=== PATIENT | female | born 1985 | race Caucasian/White ===

== ENCOUNTER 2019-09-12 18:06 | Inpatient (IN) | payer SELFPAY ==
[~2019-09-12 18:06] MED LIST: Iopamidol 370 76% 50 ML VIAL FS ONE; Iopamidol-370 76% 500 ML 1 ML ONE
[2019-09-12 18:35] LABS: #Eosinphils 0.1 thou/uL (0.0-0.7); #Monocytes 0.5 thou/uL (0.11-0.59); #Neutrophils 9.2 thou/uL (1.40-6.50); %Basophils 0.4 % (0.0-1.0); %Eosinophils 0.8 % (0.0-10.0); %Lymphocytes 23.3 % (21.0-51.0); %Monocytes 4.1 % (0.0-10.0); %Neutrophils 71.5 % (42.0-75.0); Hemoglobin 13.4 g/dL (12.0-16.0); Mean Corpuscular HGB CONC 33.1 g/dL (32.0-36.0); Mean Corpuscular Hemoglobin 28.4 pg (27.0-31.0); Mean Corpuscular Volume 85.8 fL (78.0-98.0); Mean Platelet Volume 7.6 fL (7.4-10.4); Platelet Count 325 thou/uL (130-400); RBC Distribution Width 11.1 % (11.5-14.5); Red Blood Cell (RBC) Count 4.71 mill/uL (4.20-5.40); White Blood Cell (WBC) Count 12.9 thou/uL (4.8-10.8)
--- NOTE | 2019-09-12 18:42 | RAD ---
Exam: One view pelvis HISTORY: Horse fell on patient FINDINGS: There appears to be a fracture involving the bilateral inferior pubic rami and superior pub ic rami. Diastases of the pubis. Possible fracture along the left aspect of the sacrum. Iliac wings appear to be intact. Limited evalu ation of both femoral necks. IMPRESSION: Fractures as above.
--- NOTE | 2019-09-12 18:42 | RAD ---
Exam:2 views right femur HISTORY: Horse fell on patient COMPARISON: None FINDINGS: With regard to the femur, no fracture, cortical irregularity or periosteal reaction. IMPRESSION: No fracture.
[2019-09-12 18:44] LABS: Prothrombin Time 13.7 SEC (12.0-14.7)
[2019-09-12 18:49] LABS: BHCG - Serum Negative (NEGATIVE); Pregs Control Background? CLEAR/WHITE (CLR/WHITE); Pregs Control Bar Appear? YES (CONTROL BAR)
[2019-09-12 18:53] LABS: ALT (SGPT) 26 U/L (8-55); AST (SGOT) 37 U/L (5-34); Albumin 4.3 g/dL (3.5-5.0); Alkaline Phosphatase 47 U/L (40-110); Anion Gap 13 mmol/L (10-20); BUN (Urea Nitrogen) 14 mg/dL (7.0-18.7); Bilirubin, Total 0.6 mg/dL (0.2-1.2); Calc. Creatinine Clearance 0 mL/min (70-130); Calcium 9.4 mg/dL (7.8-10.44); Carbon Dioxide 24 mmol/L (22-29); Chloride 104 mmol/L (98-107); Estimated GFR-MDRD 57; Globulin 2.9 g/dL (2.4-3.5); Glucose 129 mg/dL (70-105); Potassium 3.6 mmol/L (3.5-5.1); Protein, Total 7.2 g/dL (6.0-8.3); Sodium 137 mmol/L (136-145)
--- NOTE | 2019-09-12 18:54 | CT ---
Exam: Chest CT with contrast Abdomen CT with contrast Pelvic CT with contrast Limited CT of the thoracic and lumbar spine HISTORY: Horse fell on patient. Level 1 trauma. Correlation: None COMPARISON: None FINDINGS: Chest CT: Mediastinum: No mass, lymphadenopathy or hematoma. Residual thymic tissue in the anterior mediastinum . Aorta: Normal caliber. No aneurysm, dissection or periaortic fat stranding Heart: Normal heart size. No pericardial fluid. Trachea and central bronchi: Patent Pleural spaces: No pleural effusion Right lung: No mass or consolidation Left lung:No mass or consolidation Pneumothorax: None Abdomen CT: Gallbladder: Unremarkable Portal vein: Patent Liver: Appropriate enhancement. Spleen: Appropriate enhancement Pancreas: Appropriate enhancement Adrenal glands: Appropriate enhancement Lymphadenopathy: No gastrohepatic, retrocrural or periportal lymphadenopathy Kidneys: Symmetric enhancement. No obstructive uropathy Mesentery: No mass, lymphadenopathy, free air or free fluid Alimentary canal: Limited evaluation by the lack of oral contrast. No evidence of bowel obstruction. Normal caliber appendix. Pelvis CT: Uterus and right adnexa are unremarkable. Heterogeneous attenuation involving the left adnexa with a small amount of hyperdense fluid starting in the left adnexa and extending lateral to the left ovary. The possibility of injury to the left ovary cannot be excluded. There is a small amount of sli ghtly complex fluid in the pelvis. There is a left pelvic hematoma measuring 3.9 x 6.9 cm. Additionally, there is induration of the anterior pelvic fat at the level of the space of Retzius. Th ere is mild stranding of the left and right midline subcutaneous fat and soft tissues at the level of the perineum. Osseous structures:The visualized bony thorax is intact. There is a nondisplaced right S1 fracture. The left and right iliac wings and bilateral femoral head and femoral necks are intact. There are fractures involving both superior pubic rami and both inferior pubic rami. There is also fracture fragment inferior to the right obturator ring. There is d iastases of the symphysis pubis. There are fractures involving the anterior and mid aspect of the left acetabulum. Limited CT of the thoracic and lumbar spine: Thoracic and lumbar spine vertebral body heights are rayna ntained. No evidence of fracture. IMPRESSION: 1. Fractures involving both obturator rings with associated pelvic hematoma as described above. 2. Fracture involving the right aspect of the sacrum. Left acetabular fracture. 3. Questionable injury to the left ovary with complex fluid in the left hemipelvis. Results study discussed with Dr. Morley 09/12/2019 at 6:50 PM Code CR Transcribed Date/Time: 09/12/2019 7:25 PM
[2019-09-12] MEDS ORDERED: Fentanyl 100 MCG/2 ML VIAL ONE (18:58)
--- NOTE | 2019-09-12 19:01 | RAD ---
Exam: Chest one view HISTORY:Pain. Trauma. Comparison: None FINDINGS: Cardiac silhouette: Normal Aorta: Unremarkable Pulmonary vessels: Normal Costophrenic angles: Clear LUNGS: No masses or consolidation. Pneumothorax: None Osseous abnormalities: None IMPRESSION: No acute cardiopulmonary process.
[2019-09-12] MEDS ORDERED: hydrALAZINE 20 MG/ML VIAL SLOW IVP PRN (19:17)
[2019-09-12] MEDS ORDERED: Dextrose 5% in Water 1,000 ML IV PRN (19:17)
[2019-09-12] MEDS ORDERED: Dextrose 50% Abboject 50 ML SYRINGE SLOW IVP PRN (19:17)
[2019-09-12] MEDS ORDERED: traMADol HCl 50 MG TAB PO PRN (19:20)
--- NOTE | 2019-09-12 19:23 | HP ---
HISTORY OF PRESENT ILLNESS: A 33-year-old female, riding her horse when she fell off the horse and the horse fell on her. She is transferred by [facility], noted to be systolic 60 to 80 en route, and given fluids, although her heart rate remained normal at 80. She has been fasting for 3 days. On arrival, level 1 trauma was called. I was notified when the helicopter was landing. By the time I arrived, the patient's blood pressure was 105 to 110/80, heart rate 80. She is mentating, normal talking. Backboard had been removed. Thoracolumbar spine evaluated without tenderness. Cervical spine without tenderness. She denied loss consciousness. She is alert and oriented. GCS 15. Chest x-ray was normal. Pelvis x-ray suggested left sacral fracture and superior and inferior rami fracture bilaterally. Femur hip fracture appeared to be normal. PHYSICAL EXAMINATION: LUNGS: Clear to auscultation. CARDIAC: Regular rate and rhythm without murmur or gallop. ABDOMEN: Soft, nontender, nondistended. EXTREMITIES: Palpable pulses. No ankle edema. She had a good . Blood pressure was stable. The patient was taken to CT scan, where she underwent a CT scan of chest, abdomen, and pelvis. Results are pending, but initial review appears to be left sacral fracture and superior and inferior rami fracture bilaterally. There is diastasis of the pubis. Harrison catheter has not been in place re-evaluations, patient's lungs are clear. CARDIAC: Regular rate and rhythm. ABDOMEN: Soft, nontender. NEUROLOGIC: The patient is coherent and appropriate and states she only has pain when she moves. ALLERGIES: NONE. TOBACCO: None. ALCOHOL: None. MEDICATIONS: None. PAST SURGICAL/MEDICAL HISTORY: Noncontributory. PHYSICAL EXAMINATION: As noted above. LABORATORY DATA: Coagulation studies are normal. White count 12 and hemoglobin 13. The patient has not received blood. ASSESSMENT/PLAN: 1. Pelvic fracture. Consult Dr. Irizarry. 2. Bladder evaluation. CT cystogram once a Harrison catheter is inserted. Job ID: [id number]
[2019-09-12] MEDS ORDERED: Ibuprofen 800 MG TAB PO SCH (19:30)
[2019-09-12 19:36] LABS: Magnesium 1.8 mg/dL (1.6-2.6); Phosphorus 3.4 mg/dL (2.3-4.7)
[2019-09-12] MEDS ORDERED: Ondansetron PF 4 MG/2 ML Vial ONE (19:36)
[2019-09-12 19:50] LABS: Bacteria/HPF None Seen HPF (None Seen); Bilirubin Negative (Negative); Blood, Urine 2+ (Negative); Clarity Clear (Clear); Glucose, Urine (Dipstick) Normal (Negative); Leukocyte Negative Leu/uL (Negative); Nitrite Negative (Negative); Protein, Urine (Dipstick) 50 mg/dL (Neg-Trace); RBC/HPF Greater than 50 HPF (0-3); Squamous Epithelial 0-3 HPF (0-3); Urobilinogen Normal mg/dL (Less than 2)
[2019-09-12] MEDS ORDERED: Potassium Phosphate 15 MMOL in Sodium Chloride 0.9% 250 ML 250 ML IVPB SCH (20:00)
[2019-09-12] MEDS ORDERED: Magnesium 2 GM/50 ML 2 GM in Premix Bag 1 BAG IVPB SCH (20:00)
--- NOTE | 2019-09-12 20:11 | CT ---
Exam: Noncontrast pelvic CT. HISTORY: Pelvic fracture. Evaluate for bladder leak. Comparison: Pelvic CT performed earlier today TECHNIQUE: Imaging of the pelvis is performed after the bladder was distended with contrast. Second s et of images was performed after the contrast was removed from the urinary bladder. FINDINGS: Redemonstration of posttraumatic changes involving the pelvis which have reportedly been described on the earlier CT. Pelvic fractures and hematomas are noted. Contrast opacifies and adequately distends the urinary bladder. There is air in the nondependent portion of the urinary bladder. Post void images demonstrate a small amount of residual contrast in the urinary bladder, along with t he balloon of the Harrison catheter. There does not appear to be any leak or extravasation. There is evidence of contrast in the left and right ureter due to remote/recent IV contrast administration. IMPRESSION: No evidence of bladder injury/leak or extravasation.. Transcribed Date/Time: 09/12/2019 8:23 PM
[2019-09-12 21:31] LABS: Lactic Acid 1.5 mmol/L (0.5-2.2)
--- NOTE | 2019-09-12 21:55 | CON ---
DATE OF CONSULTATION: 09/12/2019 CHIEF COMPLAINT: Pelvic pain. HISTORY OF PRESENT ILLNESS: Ms. Trevino is a 33-year-old female, who was riding a horse. She was thrown from the horse and the horse fell. The horse landed on her pelvis. She had immediate pain. She was unable to ambulate. She was taken to the emergency department by EMS. She has been hemodynamically stable since receiving fluids. She did have borderline hypotension when she arrived. She has not been tachycardic. She has received pain medications and is currently comfortable. She had a pelvic binder placed initially, but it is now loose. She is lying supine in the [facility] [place]. Remainder of her workup has been negative so far. PAST MEDICAL HISTORY: She denies active medical problems. PAST SURGICAL HISTORY: No recent surgeries. SOCIAL HISTORY: The patient denies tobacco, alcohol, or drug use. FAMILY MEDICAL HISTORY: Noncontributory. REVIEW OF SYSTEMS: Positive for pelvic pain. Otherwise, negative 10-point review of systems. IMAGING: X-rays of the pelvis are reviewed, as well as the right femur. These demonstrates inferior and superior pubic ramus fractures on the left side. There is also a superior pubic ramus fracture on the right side. She has a sacral fracture lateral to the sacral foramen, which is most evident on the CT scan. Sacroiliac joints appear to be intact. PHYSICAL EXAMINATION: VITAL SIGNS: Stable. The patient is normotensive. She is currently afebrile and has 98% oxygen saturation on room air. GENERAL: She is lying supine and she is alert. She answers questions appropriately. No apparent distress. HEENT: Normocephalic and atraumatic. RESPIRATORY: Breathing comfortably. Equal chest rise. ABDOMEN: Soft, nontender, and nondistended. MUSCULOSKELETAL: The patient is able to flex and extend her toes. She reports normal sensation in the feet and ankles. She has palpable dorsalis pedis pulses bilaterally. Her right leg is sitting up on pillows in a flexed position. Her skin is intact. There is a pelvic binder loosely around her pelvis. She does have pain with pelvic motion and any movement of her right leg. IMPRESSION: Pelvic fracture likely stable in a 33-year-old female. PLAN: At this point, I am planning on nonoperative treatment for the patient. I think her pelvic ring injury will be stable. I would however like to keep a close eye on this. I would like to take repeat pelvic AP x-ray and inlet and outlet radiographs in 2 days after she is able to mobilize to check the alignment and position of the pelvis. If she has any significant shift, we may need to convert to operative treatment. For now, her sacral ala fracture and pubic ramus fractures likely will heal without surgical intervention. She will need to be nonweightbearing on the right leg and can weightbear as tolerated on the left leg. She will need DVT prophylaxis, as well as appropriate pain control. We will continue to follow her closely. Job ID: [id number] MTDD
[2019-09-12] MEDS: Famotidine/PF 20 mg/2ml Vial SLOW IVP SCH (22:44)
[2019-09-12] MEDS: Morphine 4 MG/ML VIAL SLOW IVP PRN (22:45)
[2019-09-12] MEDS: Sodium Chloride 0.9% 1,000 ML IV SCH (22:47)
[2019-09-12] MEDS: Senokot S 8.6-50 MG TAB PO SCH (22:49)
[2019-09-12] MEDS: Acetaminophen 1,000 MG in Premix Bag 1 BAG IVPB SCH (23:07)
[2019-09-13 00:47] VITALS: BMI 32.0
--- NOTE | 2019-09-13 03:10 | PRG ---
DATE OF SERVICE: 09/13/2019 SUBJECTIVE: The patient was seen this evening in the [facility]. She was resting comfortably in bed and reported her pain control has much improved since she has left the emergency department. She has not been up out of bed and she is currently n.p.o. at this time. She does generally report feeling better. OBJECTIVE: VITAL SIGNS: Temperature 98.0, pulse 67, respirations 14, oxygen saturation 96% on room air, blood pressure 100/50. GENERAL: Well-appearing young female, lying in bed with no signs of acute distress. PULMONARY: Equal chest rise and fall. Clear breath sounds bilaterally. No signs of acute respiratory distress. CARDIAC: Regular rate and rhythm. ABDOMEN: Soft, nontender, nondistended. EXTREMITIES: 2+ pulses in all extremities. Gross motor and sensation are intact. NEUROLOGIC: GCS is 15. ASSESSMENT: 1. Status post crushed by horse. 2. Bilateral obturator ring fractures. 3. Pelvic hematoma. 4. Sacral fracture. 5. Left acetabular fracture. 6. Possible left ovarian injury. 7. Acute traumatic pain, improving. PLAN: Continue current n.p.o. status as well as IV pain medications. The patient also has oral pain medications. We will add gabapentin to this regimen as well. We will repeat blood work in the morning and she can start working with Physical and Occupational Therapy tomorrow. Electrolytes were replaced via IV in the emergency department. Orthopedic Surgery reports no surgical indication at this time. However, we will complete inlet and outlet pelvic x-rays in 2 days for further evaluation of the pelvic injuries. Job ID: [id number]
[2019-09-13] MEDS: Cyclobenzaprine 10 MG TAB PO PRN ×2 (04:10→23:16)
[2019-09-13] MEDS: traMADol HCl 50 MG TAB PO PRN (04:10)
[2019-09-13 04:20] LABS: #Lymphocytes 1.5 thou/uL (1.20-3.40); #Monocytes 0.7 thou/uL (0.11-0.59); #Neutrophils 5.9 thou/uL (1.40-6.50); %Basophils 0.1 % (0.0-1.0); %Eosinophils 0.4 % (0.0-10.0); %Lymphocytes 18.1 % (21.0-51.0); %Monocytes 8.7 % (0.0-10.0); %Neutrophils 72.7 % (42.0-75.0); Mean Corpuscular HGB CONC 33.3 g/dL (32.0-36.0); Mean Corpuscular Hemoglobin 28.8 pg (27.0-31.0); Mean Corpuscular Volume 86.5 fL (78.0-98.0); Mean Platelet Volume 7.5 fL (7.4-10.4); Platelet Count 192 thou/uL (130-400); RBC Distribution Width 11.2 % (11.5-14.5); Red Blood Cell (RBC) Count 3.81 mill/uL (4.20-5.40); White Blood Cell (WBC) Count 8.1 thou/uL (4.8-10.8)
[2019-09-13 04:42] LABS: Anion Gap 11 mmol/L (10-20); BUN (Urea Nitrogen) 13 mg/dL (7.0-18.7); Calc. Creatinine Clearance 142 mL/min (70-130); Calcium 7.8 mg/dL (7.8-10.44); Carbon Dioxide 19 mmol/L (22-29); Chloride 111 mmol/L (98-107); Estimated GFR-MDRD Greater than 90; Glucose 102 mg/dL (70-105); Magnesium 1.7 mg/dL (1.6-2.6); Phosphorus 4.5 mg/dL (2.3-4.7); Potassium 4.1 mmol/L (3.5-5.1); Sodium 137 mmol/L (136-145)
[2019-09-13] MEDS: Acetaminophen 1,000 MG in Premix Bag 1 BAG IVPB SCH (05:55)
[2019-09-13] MEDS: Sodium Chloride 0.9% 1,000 ML IV SCH ×2 (05:56→14:47)
[2019-09-13] MEDS: Ondansetron PF 4 MG/2 ML Vial IVP PRN ×2 (06:08→17:31)
[2019-09-13] MEDS: Gabapentin 100 MG CAP PO SCH ×3 (09:46→20:44)
[2019-09-13] MEDS: Senokot S 8.6-50 MG TAB PO SCH ×3 (09:46→20:44)
[2019-09-13] MEDS: Famotidine/PF 20 mg/2ml Vial SLOW IVP SCH ×2 (09:46→20:41)
[2019-09-13] MEDS: Polyethylene Glycol 3350 17 GM Packet PO SCH (09:47)
[2019-09-13] MEDS ORDERED: FLU VACC QS2019-20(6MOS UP)/PF 60 MCG/0.5 ML SYRINGE IM ONE (11:00)
[2019-09-13] MEDS: Acetaminophen 500 MG TAB PO SCH ×3 (12:08→23:16)
[2019-09-13] MEDS: Morphine 4 MG/ML VIAL SLOW IVP PRN ×3 (12:09→20:41)
--- NOTE | 2019-09-13 14:06 | PRG ---
DATE OF SERVICE: 09/13/2019 SUBJECTIVE: The patient was seen this morning in the intermediate care unit. The patient is awake, alert, in no distress and reports that her pain was well controlled. The patient voices no complaints or concerns at this time. The patient has been n.p.o. since midnight. OBJECTIVE: VITAL SIGNS: Blood pressure 103/60, pulse 77, respirations 18, SpO2 of 97% on room air, temperature 97.6. GENERAL: Well-appearing young female, lying in hospital bed, in no acute distress. PULMONARY: Equal chest rise and fall, bilateral breath sounds clear, no acute respiratory distress. CARDIAC: Regular rate regular rhythm, no murmurs. ABDOMEN: Soft, nontender, nondistended. EXTREMITIES: 2+ pulses in all extremities. Gross motor and sensation are intact in all extremities. NEUROLOGIC: GCS 15. ASSESSMENT: 1. Status post crushed by horse. 2. Bilateral obturator ring fractures. 3. Pelvic hematoma. 4. Sacral fracture. 5. Left acetabular fracture. 6. Possible left ovary injury. 7. Acute traumatic pain improving. PLAN: Continue supportive care. We will increase the patient's diet as tolerated. Once the patient is tolerating fluids and a diet, we will stop maintenance fluids. We will switch the patient over to oral pain medications. We will move the patient to the surgical floor and have Physical and Occupational therapy start working with the patient. Orthopedic Surgery plans to get a repeat pelvis x-ray tomorrow after the patient has ambulated to make final decision on conservative versus operative management. The patient was seen by Dr. Scruggs during morning rounds. The plan was discussed with the patient, who agrees. Job ID: [id number]
--- NOTE | 2019-09-14 00:08 | PRG ---
DATE OF SERVICE: 09/13/2019 SUBJECTIVE: The patient was seen this evening, lying in bed with no signs of acute distress. She reported she was beginning to be able to move more in the bed and pain management has improved. She has not been out of bed yet. She states that Orthopedic Surgery plans to perform imaging tomorrow to re-evaluate pelvis. They have also made her n.p.o. and started on IV fluid. I suppose they are planning possible surgical management tomorrow. OBJECTIVE: VITAL SIGNS: Temperature 98.4, pulse 100, respirations 16, oxygen saturation 97% on room air, blood pressure 111/69. GENERAL: Well-appearing young female, lying in bed with no signs of acute distress. PULMONARY: Equal chest rise and fall. No signs of acute respiratory distress. CARDIAC: Regular rate and rhythm. ABDOMEN: Soft, nontender, nondistended. EXTREMITIES: 2+ pulses in all extremities. Gross motor and sensation intact. NEUROLOGICAL: GCS is 15. ASSESSMENT: 1. Status post crush by horse. 2. Bilateral obturator ring fractures. 3. Pelvic hematoma, stable. 4. Sacral fracture. 5. Left acetabular fracture. 6. Possible left ovarian injury. PLAN: The patient will be n.p.o. with normal saline at 75 an hour at midnight per Orthopedic Surgery. We will continue to monitor her hemodynamics. She has not required any additional blood transfusions since she has arrived. We will follow up with imaging results tomorrow and Orthopedic Surgery's plan for possible fixation. The patient will likely need placement at a rehab facility regardless if she has surgery or not. Job ID: [id number]
[2019-09-14] MEDS: Morphine 4 MG/ML VIAL SLOW IVP PRN ×2 (03:30→08:26)
[2019-09-14] MEDS: Sodium Chloride 0.45% 1,000 ML IV SCH ×2 (03:36→14:16)
[2019-09-14] MEDS: Acetaminophen 500 MG TAB PO SCH ×3 (05:11→18:38)
[2019-09-14 05:39] LABS: #Eosinphils 0.1 thou/uL (0.0-0.7); #Lymphocytes 1.7 thou/uL (1.20-3.40); #Monocytes 0.6 thou/uL (0.11-0.59); #Neutrophils 5.1 thou/uL (1.40-6.50); %Basophils 0.3 % (0.0-1.0); %Eosinophils 1.7 % (0.0-10.0); %Lymphocytes 22.7 % (21.0-51.0); %Monocytes 7.9 % (0.0-10.0); %Neutrophils 67.4 % (42.0-75.0); Hemoglobin 10.6 g/dL (12.0-16.0); Mean Corpuscular Hemoglobin 28.6 pg (27.0-31.0); Mean Corpuscular Volume 86.6 fL (78.0-98.0); Mean Platelet Volume 7.6 fL (7.4-10.4); Platelet Count 174 thou/uL (130-400); RBC Distribution Width 11.4 % (11.5-14.5); Red Blood Cell (RBC) Count 3.71 mill/uL (4.20-5.40); White Blood Cell (WBC) Count 7.6 thou/uL (4.8-10.8)
[2019-09-14 06:03] LABS: Anion Gap 6 mmol/L (10-20); BUN (Urea Nitrogen) 7 mg/dL (7.0-18.7); Calc. Creatinine Clearance 140 mL/min (70-130); Calcium 7.8 mg/dL (7.8-10.44); Carbon Dioxide 24 mmol/L (22-29); Chloride 108 mmol/L (98-107); Estimated GFR-MDRD Greater than 90; Glucose 100 mg/dL (70-105); Magnesium 1.8 mg/dL (1.6-2.6); Phosphorus 2.4 mg/dL (2.3-4.7); Potassium 3.7 mmol/L (3.5-5.1); Sodium 134 mmol/L (136-145)
--- NOTE | 2019-09-14 08:33 | RAD ---
PELVIS 3 VIEWS: COMPARISON: Pelvic CT 09/13/2019. FINDINGS: Abnormal widening of the symphysis pubis with essentially nondisplaced fractures of the right sacral ala and right superior and inferior ischiopubic rami with displaced fractures of the left superior an d inferior pubic rami. IMPRESSION: Bilateral ischiopubic rami fractures, right sacral ala fracture, and separation of the symphysis pubi s up to 1.2 cm. POS: TPC
[2019-09-14] MEDS: Polyethylene Glycol 3350 17 GM Packet PO SCH (08:35)
[2019-09-14] MEDS: Cyclobenzaprine 10 MG TAB PO PRN (08:35)
[2019-09-14] MEDS: traMADol HCl 50 MG TAB PO PRN (08:35)
[2019-09-14] MEDS: Gabapentin 100 MG CAP PO SCH (08:35)
[2019-09-14] MEDS: Senokot S 8.6-50 MG TAB PO SCH ×2 (08:35→21:45)
[2019-09-14] MEDS: Famotidine 20 MG TAB PO SCH ×2 (08:39→21:45)
[2019-09-14] MEDS ORDERED: Morphine 2 MG/ML SYRINGE SLOW IVP PRN (10:03)
[2019-09-14] MEDS: Scopolamine 1.5 mg/72 hour Patch TD SCH (10:38)
[2019-09-14] MEDS: traMADol HCl 50 MG TAB PO SCH ×2 (14:21→18:38)
[2019-09-14] MEDS: Gabapentin 300 MG CAP PO SCH ×2 (14:21→21:45)
--- NOTE | 2019-09-14 18:26 | PRG ---
DATE OF SERVICE: 09/14/2019 SUBJECTIVE: The patient was seen on the surgical floor this morning attempting to work with Physical Therapy. The patient reports increased pain and severe nausea. The patient is unable to stand and participate with Physical Therapy due to severe nausea and pain. The patient reports before attempting to get up, her pain was well controlled and denied any nausea. This was the first time the patient had sat up since admission. The patient has been using her incentive spirometer. OBJECTIVE: VITAL SIGNS: Blood pressure 99/64, pulse 80, respirations 16, SpO2 of 96% on room air, temperature 98.0. GENERAL: Well-appearing female, in moderate distress due to pain. PULMONARY: Equal chest rise and fall. No respiratory distress. CARDIAC: Regular rate and regular rhythm. EXTREMITIES: 2+ pulses in all extremities, sensation intact. NEUROLOGIC: GCS 15. LABORATORY DATA: WBC 7.6, RBC 3.71, hemoglobin 10.6, hematocrit 32.2, platelets 174. Sodium 134, potassium 3.7, BUN 7, creatinine 0.71, estimated GFR greater than 90, glucose 100. DIAGNOSTIC STUDIES: Repeat pelvis x-ray, impression; bilateral rami fractures, right sacral ala fracture, and separation of the symphysis pubis up to 1.2 cm. ASSESSMENT: 1. Status post crush by horse. 2. Bilateral obturator ring fracture. 3. Pelvic hematoma. 4. Sacral fracture. 5. Left acetabular fracture. 6. Possible left ovary injury. 7. Acute traumatic pain and nausea. PLAN: Continue supportive care. Continue regular diet as tolerated. We will place a scopolamine patch as the patient is feeling nauseous and dizzy. We will have Physical Therapy work with the patient again later today. The patient is pending a lumbar corset per Orthopedic Surgery. The patient was approved for 2 [facility] home health visits for physical therapy once she is ready for discharge. Attempted to get the patient placed in inpatient rehab, but the patient does not have funding. Job ID: [id number]
[2019-09-14] MEDS ORDERED: Enoxaparin Sodium 40 MG/0.4 ML SYRINGE SC SCH (21:00)
--- NOTE | 2019-09-15 00:23 | PRG ---
DATE OF SERVICE: 09/14/2019 SUBJECTIVE: The patient was seen this evening, sitting up in bed with no signs of acute distress. She reported she was able to sit up at the edge of the bed, but not stand up today with physical therapy. She is tolerating a regular diet. She has pelvic brace in place. OBJECTIVE: VITAL SIGNS: Temperature 98.3, pulse 75, respirations 16, oxygen saturation 98% on room air, blood pressure 97/76. GENERAL: Well-appearing young female, lying in bed with no signs of acute distress. PULMONARY: Equal chest rise and fall. Clear breath sounds bilaterally. No signs of acute respiratory distress. CARDIAC: Regular rate and rhythm. GI: Abdomen is soft, nontender, nondistended. EXTREMITIES: 2+ pulses in all extremities. Gross motor and sensation intact. NEUROLOGIC: GCS is 15. ASSESSMENT: 1. Status post crush by horse. 2. Bilateral obturator ring fracture. 3. Pelvic hematoma, stable. 4. Sacral fracture. 5. Left acetabular fracture. 6. Possible left ovary injury. PLAN: Continue current diet and pain medicine. The patient was started on Lovenox today. We will repeat blood work tomorrow. The patient is uninsured, but we will get 2 aishwarya visits with home health for home PT. She is not ready for discharge at this time as she is still not able to get up out of the bed and ambulate. She will continue to work with Physical and Occupational Therapy tomorrow. Pain is well controlled. Job ID: [id number]
[2019-09-15] MEDS: Acetaminophen 500 MG TAB PO SCH ×4 (00:29→18:22)
[2019-09-15] MEDS: traMADol HCl 50 MG TAB PO SCH ×4 (00:30→18:22)
[2019-09-15 06:19] LABS: #Eosinphils 0.3 thou/uL (0.0-0.7); #Lymphocytes 2.1 thou/uL (1.20-3.40); #Monocytes 0.6 thou/uL (0.11-0.59); %Basophils 0.3 % (0.0-1.0); %Eosinophils 3.7 % (0.0-10.0); %Lymphocytes 25.7 % (21.0-51.0); %Monocytes 7.8 % (0.0-10.0); %Neutrophils 62.4 % (42.0-75.0); Hemoglobin 11.1 g/dL (12.0-16.0); Mean Corpuscular HGB CONC 32.7 g/dL (32.0-36.0); Mean Corpuscular Hemoglobin 28.6 pg (27.0-31.0); Mean Corpuscular Volume 87.5 fL (78.0-98.0); Mean Platelet Volume 7.9 fL (7.4-10.4); Platelet Count 188 thou/uL (130-400); RBC Distribution Width 11.6 % (11.5-14.5); Red Blood Cell (RBC) Count 3.88 mill/uL (4.20-5.40)
[2019-09-15 06:35] LABS: Anion Gap 10 mmol/L (10-20); BUN (Urea Nitrogen) 8 mg/dL (7.0-18.7); Calc. Creatinine Clearance 144 mL/min (70-130); Calcium 8.3 mg/dL (7.8-10.44); Carbon Dioxide 25 mmol/L (22-29); Chloride 108 mmol/L (98-107); Estimated GFR-MDRD Greater than 90; Glucose 99 mg/dL (70-105); Magnesium 1.8 mg/dL (1.6-2.6); Phosphorus 2.7 mg/dL (2.3-4.7); Potassium 3.8 mmol/L (3.5-5.1); Sodium 139 mmol/L (136-145)
[2019-09-15] MEDS: Polyethylene Glycol 3350 17 GM Packet PO SCH (08:33)
[2019-09-15] MEDS: Senokot S 8.6-50 MG TAB PO SCH ×2 (08:33→20:40)
[2019-09-15] MEDS: Gabapentin 300 MG CAP PO SCH ×3 (08:33→20:40)
[2019-09-15] MEDS: Famotidine 20 MG TAB PO SCH ×2 (08:33→20:40)
--- NOTE | 2019-09-15 11:53 | PRG ---
DATE OF SERVICE: 09/15/2019 SUBJECTIVE: The patient was seen on the surgical floor this morning lying in hospital bed. The patient reports her pain is well controlled at this time. The patient voices no complaints or concerns at this time. The patient is tolerating a regular diet. The patient did get up and ambulate with Physical Therapy to the restroom earlier today with moderate amount of pain which made her nauseated as well. OBJECTIVE: VITAL SIGNS: Blood pressure 100/63, pulse 79, temperature 98.2, respirations 16, SpO2 of 95% on room air. GENERAL: Well-appearing female, in no acute distress. PULMONARY: Equal chest rise and fall. Bilateral breath sounds, clear. CARDIAC: Regular rate. Regular rhythm. EXTREMITIES: 2+ pulses in all extremities. Gross motor and sensation, intact. NEUROLOGIC: GCS 15. LABORATORY DATA: WBC 8.0, RBC 3.88, hemoglobin 11.1, hematocrit 34.0, platelets 188. Sodium 139, potassium 3.8, chloride 108, creatinine 0.69, estimated GFR greater than 90, glucose 99, calcium 8.3, phosphorus 2.7, magnesium 1.8. DIAGNOSTICS: There are no new diagnostics to review today. ASSESSMENT: 1. Status post crush injury by horse. 2. Bilateral obturator ring fracture. 3. Pelvic hematoma. 4. Sacral fracture. 5. Left acetabular fracture, nonoperative. 6. Possible left ovary injury. 7. Acute traumatic pain and nausea. PLAN: Continue supportive care and pain regimen. We will continue regular diet as tolerated. We will continue physical and occupational therapy. The patient uses her incentive spirometer every hour while awake. We will have the patient up in the chair for most of the day if possible. Orthopedic Surgery plans to get a repeat x-ray on Tuesday. We will have Physical Therapy work with her over the weekend. The plan was discussed with the patient, who agrees. The plan was discussed with Dr. Mancilla, who agrees. Job ID: [id number]
[2019-09-15] MEDS: Enoxaparin Sodium 30 MG/0.3 ML SYRINGE SC SCH (20:43)
[2019-09-16] MEDS: traMADol HCl 50 MG TAB PO SCH ×5 (00:51→22:16)
[2019-09-16] MEDS: Acetaminophen 500 MG TAB PO SCH ×4 (00:51→17:16)
--- NOTE | 2019-09-16 01:50 | PRG ---
DATE OF SERVICE: 09/15/2019 SUBJECTIVE: The patient was seen this evening, sitting up in bed with no signs of acute distress. She did report that she was able to ambulate with physical therapy to the bedside commode, but had significant pain, when she sat down. Did cause her to become nauseous and vomit. She has since been doing well in bed. She states that her pain is well controlled otherwise. OBJECTIVE: VITAL SIGNS: Temperature 98.4, pulse 78, respirations 16, oxygen saturation 99% on room air, and blood pressure 104/66. GENERAL: Well-appearing young female, sitting up in bed with no signs of acute distress. PULMONARY: Equal chest rise and fall. No signs of acute respiratory distress. ASSESSMENT: 1. Status post crush by horse. 2. Bilateral obturator ring fractures. 3. Pelvic hematoma, stable. 4. Sacrum fracture, stable. 5. Left acetabular fracture. 6. Possible left ovarian injury. 7. Acute traumatic pain, improving. PLAN: Continue current diet and pain regimen. Continue physical and occupational therapy. Ortho to complete repeat x-rays of the pelvis on Tuesday to reassess for stabilization. The patient is not ready for discharge home at this time due to limited mobility. She is uninsured and not a candidate for inpatient rehab. Job ID: [id number]
[2019-09-16] MEDS: Famotidine 20 MG TAB PO SCH ×2 (09:05→21:08)
[2019-09-16] MEDS: Gabapentin 300 MG CAP PO SCH ×3 (09:05→21:08)
[2019-09-16] MEDS: Senokot S 8.6-50 MG TAB PO SCH ×2 (09:05→21:08)
[2019-09-16] MEDS: Enoxaparin Sodium 30 MG/0.3 ML SYRINGE SC SCH ×2 (09:06→21:07)
[2019-09-16] MEDS: Polyethylene Glycol 3350 17 GM Packet PO SCH (09:06)
[2019-09-16] MEDS: Cyclobenzaprine 10 MG TAB PO PRN (09:10)
[2019-09-16] MEDS ORDERED: Ibuprofen 600 MG TAB PO PRN (09:19)
[2019-09-16] MEDS ORDERED: traMADol HCl 50 MG TAB PO PRN (09:19)
--- NOTE | 2019-09-16 12:00 | PRG ---
DATE OF SERVICE: 09/16/2019 SUBJECTIVE: This is a 33-year-old woman, who was crushed by a horse with pelvic and sacrum fractures. The patient remains on the surgical floor, lying in hospital bed. The patient just walked from the restroom and reports some increased pain after going to the restroom and sitting on the toilet. Otherwise, the patient's pain is well controlled without movement. The patient continues to tolerate a regular diet. OBJECTIVE: VITAL SIGNS: Pulse 75, temperature 98.4, respirations 18, SpO2 of 94% on room air, and blood pressure 99/67. GENERAL: Well-appearing female, lying in hospital bed, in no acute distress. PULMONARY: Equal chest rise and fall. Breath sounds clear. CARDIAC: Regular rate. Regular rhythm. EXTREMITIES: 2+ pulses in all extremities. Gross motor and sensation intact. NEUROLOGIC: GCS 15. LABORATORY DATA: There is no labs to evaluate today. DIAGNOSTICS: There is no new diagnostics to review today. ASSESSMENT: 1. Status post crush injury by horse. 2. Bilateral obturator ring fracture. 3. Pelvic hematoma. 4. Sacral fracture. 5. Left acetabular fracture, nonoperative. 6. Possible left ovary injury. 7. Acute traumatic pain. PLAN: Continue supportive care. We will adjust patient's pain medication, where she has scheduled and p.r.n., so she can use the p.r.n. before physical therapy. Continue regular diet as tolerated. Continue to encourage increased ambulation and work with physical and occupational therapy. Continue aggressive pulmonary toilet and using her incentive spirometer every hour while awake. The patient has been encouraged to sit up in the chair for most of the day. Orthopedic Surgery plans to repeat the patient's x-rays tomorrow. The plan was discussed with the patient, who agrees. The plan was also discussed with Dr. Mancilla, who agrees. Job ID: [id number]
[2019-09-16] MEDS: Ibuprofen 600 MG TAB PO SCH (22:15)
[2019-09-17] MEDS: Acetaminophen 500 MG TAB PO SCH ×5 (00:18→23:49)
[2019-09-17] MEDS: Cyclobenzaprine 10 MG TAB PO PRN ×2 (00:19→11:43)
--- NOTE | 2019-09-17 01:22 | PRG ---
DATE OF SERVICE: 09/16/2019 SUBJECTIVE: The patient was seen this evening during rounds. She was resting comfortably and asleep during my evaluation. Nursing reported no acute events. OBJECTIVE: VITAL SIGNS: Temperature 98.8, pulse 75, respirations 16, oxygen saturation 100% on room air, blood pressure 106/69. GENERAL: Well-appearing, middle-aged female, lying in bed with no signs of acute distress. PULMONARY: Equal chest rise and fall. No signs of acute respiratory distress. ASSESSMENT: 1. Status post crush by horse. 2. Bilateral obturator ring fracture. 3. Pelvic hematoma, stable. 4. Sacral fracture. 5. Left acetabular fracture. 6. Possible left ovarian injury. PLAN: Continue current diet and pain regimen. Continue physical and occupational therapy. The patient is pending discharge home with home health. Ortho to repeat x-rays of her pelvis on Tuesday. Job ID: [id number]
[2019-09-17] MEDS: traMADol HCl 50 MG TAB PO SCH ×5 (03:23→23:50)
[2019-09-17] MEDS: Ibuprofen 600 MG TAB PO SCH ×4 (05:52→21:43)
[2019-09-17] MEDS: Famotidine 20 MG TAB PO SCH ×2 (09:15→21:43)
[2019-09-17] MEDS: Senokot S 8.6-50 MG TAB PO SCH ×2 (09:15→21:43)
[2019-09-17] MEDS: Scopolamine 1.5 mg/72 hour Patch TD SCH (09:16)
[2019-09-17] MEDS: Enoxaparin Sodium 30 MG/0.3 ML SYRINGE SC SCH ×2 (09:16→21:43)
[2019-09-17] MEDS: Gabapentin 300 MG CAP PO SCH ×3 (09:16→21:43)
[2019-09-17] MEDS: Polyethylene Glycol 3350 17 GM Packet PO SCH (09:16)
--- NOTE | 2019-09-17 14:23 | PRG ---
DATE OF SERVICE: 09/17/2019 SUBJECTIVE: This is a 33-year-old woman who was crushed by a horse with pelvic and sacral fractures. The patient remains on the surgical floor. The patient is currently up, ambulating with a walker after going to the restroom. The patient reports severe pain with ambulation in her pelvis area. The patient does report some nausea whenever she does have severe pain. The patient states she had a good night and the pain is well controlled, if she is not ambulating. The patient continues to tolerate a regular diet. The patient states this is the farther she has walked since admission. OBJECTIVE: VITAL SIGNS: Temperature 98.4, pulse 74, respirations 20, SpO2 of 96% on room air, blood pressure 97/61. GENERAL: A middle-age female, moderate distress due to pain, ambulating back to bed from the restroom. PULMONARY: Equal chest rise and fall, bilateral breath sounds clear. CARDIAC: Regular rate, regular rhythm. EXTREMITIES: 2+ pulses in all extremities. Gross motor and sensation intact. NEUROLOGIC: GCS 15. LABORATORY DATA: No new labs diagnostics to review today. ASSESSMENT: 1. Status post crush injury by a horse. 2. Bilateral obturator ring fracture. 3. Pelvic hematoma. 4. Sacral fracture. 5. Left acetabular fracture, nonoperative. 6. Possible left ovary injury. 7. Acute traumatic pain. PLAN: Continue supportive care. We will increase the patient's pain regimen and add [place] p.r.n. Continue to have Physical Therapy work with the patient. We will continue regular diet as tolerated. Orthopedic Surgery plans to repeat pelvic x-rays tomorrow. The patient was examined by Dr. Scruggs, during morning rounds. The plan was discussed with the patient, who agrees. Job ID: [id number]
--- NOTE | 2019-09-18 01:58 | PRG ---
DATE OF SERVICE: 09/17/2019 SUBJECTIVE: The patient was seen this evening, lying in bed comfortably and asleep, with no signs of acute distress. Nursing reported no acute events. OBJECTIVE: VITAL SIGNS: Temperature 98, pulse 88, respirations 16, oxygen saturation 98% on room air, and blood pressure 97/63. GENERAL: Well-appearing middle-aged female, lying in bed with no signs of acute distress. PULMONARY: Equal chest rise and fall. No signs of acute respiratory distress. ASSESSMENT: 1. Status post crush by horse. 2. Bilateral obturator ring fractures. 3. Pelvic hematoma, stable. 4. Sacral fracture. 5. Left acetabular fracture. 6. Possible left ovarian injury. PLAN: Continue current diet and pain regimen. The patient was given p.r.n. [place] today to assist with further pain control. She will continue to work with Physical and Occupational Therapy. Orthopedic Surgery to complete x-rays of her pelvis tomorrow and reconsider possible surgical intervention as she has such significant pain. Job ID: [id number]
[2019-09-18] MEDS: Ibuprofen 600 MG TAB PO SCH ×3 (05:33→23:02)
[2019-09-18] MEDS: Acetaminophen 500 MG TAB PO SCH (05:33)
[2019-09-18] MEDS: traMADol HCl 50 MG TAB PO SCH ×4 (05:33→23:01)
[2019-09-18] MEDS: Gabapentin 300 MG CAP PO SCH ×3 (08:22→20:03)
[2019-09-18] MEDS: Senokot S 8.6-50 MG TAB PO SCH ×2 (08:22→20:03)
[2019-09-18] MEDS: Famotidine 20 MG TAB PO SCH ×2 (08:23→20:03)
[2019-09-18] MEDS: Polyethylene Glycol 3350 17 GM Packet PO SCH (08:23)
[2019-09-18] MEDS: Enoxaparin Sodium 30 MG/0.3 ML SYRINGE SC SCH ×2 (08:23→20:02)
--- NOTE | 2019-09-18 09:06 | RAD ---
AP VIEW PELVIS: INDICATIONS: Prior exam dated 09/14/2019. FINDINGS: The patient's known left pubic root and left inferior pubic ramus fractures, in addition to the left pubic body fracture are unchanged. The fracture involving the superior ramus on the right is stable a ppearing. The patient's known zone II right sacral injury is stable. Diastasis of the symphysis pubis is similar appearing. Both hip joints are normal appearing. Bowel gas pattern is unobstructed. Umbil ical ornamentation overlies the lower abdomen. IMPRESSION: Stable pubic bone and right sacral fractures. POS: CET
--- NOTE | 2019-09-18 10:42 | PRG ---
DATE OF SERVICE: 09/18/2019 SUBJECTIVE: The patient is a 33-year-old woman, who was crushed by a horse with pelvic and sacral fractures. The patient remains on the surgical floor. The patient was seen this morning during rounds, she was lying in bed comfortably with no signs of acute distress. Nursing reported no acute events. The patient reports that she was able to ambulate earlier this morning using a walker to go to the restroom. The patient says that her pain was better controlled last night and this morning. She says her pain while ambulating yesterday was 8/10. This morning, when ambulating, she says her pain was a 5/10. The patient had pelvic x-ray repeated earlier this morning. Ortho is pending decision for operative versus nonoperative treatment. The patient also reports that she has not yet had a bowel movement. OBJECTIVE: VITAL SIGNS: Temperature 98.2 Fahrenheit, blood pressure 116/75, pulse 72, respirations 16, and O2 saturation 97% on room air. GENERAL: Well-appearing middle-aged female, lying in bed with no signs of acute distress. PULMONARY: Equal chest rise and fall. No signs of acute respiratory distress. EXTREMITIES: Gross motor and sensation intact. NEUROLOGIC: GCS 15. IMAGING STUDIES: Pelvic x-ray shows stable pubic bone and right sacral fractures. Compared to previous pelvic x-ray, there is an increase of 1 mm widening of the pubic symphysis from 12 mm to today being 13.1 mm. ASSESSMENT: 1. Status post crush injury by a horse. 2. Bilateral obturator ring fracture. 3. Pelvic hematoma, stable. 4. Sacral fracture. 5. Left acetabular fracture, nonoperative. 6. Possible left ovarian injury. 7. Acute traumatic pain. PLAN: Continue supportive care. Continue current diet and pain regimen including [place] p.r.n. to assist with additional pain control. Continue to work with physical and occupational therapy. Await decision of Orthopedic Surgery to decide if possible surgical intervention is needed as the patient has had significant pain when ambulating. The patient was seen and evaluated by Dr. Scruggs during morning rounds. Discussed plan of care with the patient who is in agreement. Job ID: [id number]
[2019-09-18] MEDS: Acetaminophen 325 MG TAB PO SCH ×3 (11:34→23:02)
[2019-09-18] MEDS: Cyclobenzaprine 10 MG TAB PO PRN (11:34)
[2019-09-18] MEDS: HYDROcodone/Acetaminophen 7.5/325 mg Tablet PO PRN (13:30)
--- NOTE | 2019-09-19 02:16 | PRG ---
DATE OF SERVICE: 09/18/2019 SUBJECTIVE: Ms. Trevino is a 33-year-old female, status post crush injury by a horse. She sustained bilateral obturator ring fracture, pelvic hematoma, sacral fracture, left acetabular fracture, possible left ovarian injury, in which she is being treated conservative. The patient reports she has been doing good. She has been walking around the room and on the floor using a walker with limited help from physical therapy. She is pretty much independent using the bathroom for personal hygiene. Pain is well controlled. She is tolerating with her regular diet. OBJECTIVE: GENERAL: Currently, the patient is lying down in bed comfortable with no acute respiratory distress. VITAL SIGNS: Stable. LUNGS: Clear bilaterally. HEART: Regular rate and rhythm. ABDOMEN: Soft and nondistended. PLAN: Plan will be to continue supportive care. Continue pain control. Encourage working with PT/OT tomorrow. Anticipate discharge home in the next 24 to 48 hours. Job ID: [id number]
[2019-09-19] MEDS: Acetaminophen 325 MG TAB PO SCH ×4 (05:42→23:00)
[2019-09-19] MEDS: Ibuprofen 600 MG TAB PO SCH ×3 (05:42→23:00)
[2019-09-19] MEDS: traMADol HCl 50 MG TAB PO SCH ×4 (05:42→23:00)
[2019-09-19] MEDS: Polyethylene Glycol 3350 17 GM Packet PO SCH (08:47)
[2019-09-19] MEDS: Enoxaparin Sodium 30 MG/0.3 ML SYRINGE SC SCH ×2 (08:47→20:22)
[2019-09-19] MEDS: Senokot S 8.6-50 MG TAB PO SCH ×2 (08:48→20:21)
[2019-09-19] MEDS: Famotidine 20 MG TAB PO SCH ×2 (08:48→20:22)
[2019-09-19] MEDS: Gabapentin 300 MG CAP PO SCH ×3 (08:48→20:22)
[2019-09-19] MEDS: HYDROcodone/Acetaminophen 7.5/325 mg Tablet PO PRN (10:26)
--- NOTE | 2019-09-19 10:49 | PRG ---
DATE OF SERVICE: 09/19/2019 SUBJECTIVE: The patient is a 33-year-old woman, who was crushed by a horse, sustaining pelvic and sacral fractures. The patient remains on the surgical floor this morning. The patient was seen this morning during rounds, she was lying in bed comfortably with no signs of acute distress. The patient reports that she continues to ambulate using a walker in her room. She rates her pain while ambulating as a 5/10. The patient says overall her pain has been better controlled in the past 24 hours. After reviewing the patient's pelvic x-ray from yesterday, Ortho has decided to continue nonoperative treatment at this time. The patient is currently on bowel regimen of MiraLAX, Senna, and lactulose. She has still not had a bowel movement since September 16. OBJECTIVE: VITAL SIGNS: Temperature 98.2 Fahrenheit, blood pressure 100/64, pulse 76, respirations 16, and O2 saturation 97% on room air. GENERAL: Well-appearing, middle-aged female, lying in bed with no signs of acute distress. PULMONARY: Equal chest rise and fall. No signs of acute respiratory distress. EXTREMITIES: Gross motor and sensation intact. ABDOMEN: Soft and nondistended. NEUROLOGIC: GCS 15. ASSESSMENT: 1. Status post crush injury by a horse. 2. Bilateral obturator ring fractures. 3. Pelvic hematoma, stable. 4. Sacral fracture. 5. Left acetabular fracture, nonoperative. 6. Possible left ovarian injury. 7. Acute traumatic pain. PLAN: Continue supportive care. Continue current diet and pain control. Encouraged the patient to continue working with Physical and Occupational Therapy. We will add Movantik to the patient's bowel regimen to encourage a bowel movement today. Anticipate discharge home in the next 24 to 48 hours, after the patient has successfully had a bowel movement. The patient was seen and evaluated by Dr. Scruggs during morning rounds. Discussed plan of care with the patient, who is in agreement. Job ID: [id number]
[2019-09-20] MEDS: HYDROcodone/Acetaminophen 7.5/325 mg Tablet PO PRN ×2 (01:28→09:46)
--- NOTE | 2019-09-20 01:39 | PRG ---
DATE OF SERVICE: 09/19/2019 SUBJECTIVE: Ms. Trevino is a 33-year-old female status post crush injury by a horse. She sustained pelvic fracture in which she underwent conservative treatment with pain control and physical therapy. The patient reports she has been doing good. Pain is well controlled. Vital signs are stable. She has tolerated her regular diet. She had a bowel movement today. OBJECTIVE: GENERAL: Currently, patient is lying down in bed, comfortable, with no acute respiratory distress. VITAL SIGNS: Stable. LUNGS: Clear bilaterally. HEART: Regular rate and rhythm. ABDOMEN: Soft, nondistended. EXTREMITIES: Neurovascularly intact x4. PLAN: Will be continued supportive care. Continued pain control. Encourage working with PT/OT. Anticipate discharge home tomorrow. Job ID: [id number]
[2019-09-20] MEDS: Cyclobenzaprine 10 MG TAB PO PRN (03:24)
[2019-09-20] MEDS: traMADol HCl 50 MG TAB PO SCH ×2 (05:36→12:40)
[2019-09-20] MEDS: Acetaminophen 325 MG TAB PO SCH ×2 (05:36→12:39)
[2019-09-20] MEDS: Ibuprofen 600 MG TAB PO SCH ×2 (05:36→15:22)
[2019-09-20] MEDS: Enoxaparin Sodium 30 MG/0.3 ML SYRINGE SC SCH (09:46)
[2019-09-20] MEDS: Polyethylene Glycol 3350 17 GM Packet PO SCH (09:46)
[2019-09-20] MEDS: Famotidine 20 MG TAB PO SCH (09:47)
[2019-09-20] MEDS: Gabapentin 300 MG CAP PO SCH ×2 (09:47→15:22)
[2019-09-20] MEDS: Senokot S 8.6-50 MG TAB PO SCH (09:47)
[2019-09-20] MEDS: Scopolamine 1.5 mg/72 hour Patch TD SCH (09:48)
[2019-09-20 15:47] VITALS: BP 103/68; TEMP 98.2
--- NOTE | 2019-09-21 02:25 | DIS ---
DATE OF ADMISSION: 09/12/2019 DATE OF DISCHARGE: 09/20/2019 ADMITTING ATTENDING: Alban Scruggs DO CONSULTATIONS: 1. Orthopedic surgery, Dr. Dwight Irizarry. 2. [facility]. 3. Case management. 4. Physical therapy. 5. Occupational therapy. PROCEDURES: 1. Chest/abdomen/pelvis CT on September 12, 2019: Fractures involving both obturator rings with associated pelvic hematoma. Fracture involving the right aspect of the sacrum. Left acetabular fracture. Questionable injury to the left ovary with complex fluid in the left hemipelvis. 2. Femur x-ray on September 12, 2019: No fracture. 3. Pelvis x-ray on September 12, 2019: Fracture involving the bilateral inferior pubic rami and superior pubic rami. Diastasis of the pubis. Possible fracture along the left aspect of the sacrum. Iliac wings appear to be intact. 4. Chest x-ray on September 12, 2019: No acute process. 5. Pelvis CT on September 12, 2019: No evidence of bladder injury or extravasation. 6. Pelvis x-ray on September 14, 2019: Abnormal widening of the symphysis pubis up to 1.2 cm with essentially nondisplaced fractures of the right sacral ala and right superior and inferior ischiopubic rami. Displaced fractures of the left superior and inferior pubic rami. 7. Pelvis x-ray on September 18, 2019. The patient's known left pubic root and left inferior pubic ramus fractures, in addition to the left pubic body fracture are unchanged. The fracture involving the superior ramus on the right is stable appearing. The patient's known zone II right sacral injury is stable. Diastasis of the symphysis pubis is similar appearing, up to 1.31 cm. Both hip joints are normal appearing. PRIMARY DIAGNOSIS: Status post crush injury by a horse. SECONDARY DIAGNOSES: 1. Bilateral obturator ring fractures. 2. Pelvic hematoma, stable. 3. Sacral fractures. 4. Left acetabular fracture, nonoperative. 5. Possible left ovarian injury. 6. Acute traumatic pain, improving. DISCHARGE MEDICATIONS: 1. Lovenox 40 mg subcu daily for 14 days. 2. Aspirin 81 mg daily, to be started after completion of Lovenox course and continued for an additional 14 days. 3. Acetaminophen 650 mg p.o. q.6 hours p.r.n. 4. Cyclobenzaprine 10 mg p.o. t.i.d. p.r.n. 5. Gabapentin 300 mg p.o. t.i.d. 6. Ibuprofen 600 mg p.o. q.8 hours p.r.n. 7. MiraLAX 17 g p.o. daily. 8. Senokot 2 tabs p.o. b.i.d. 9. Tramadol 50-100 mg p.o. q.6 hours p.r.n. DISCONTINUED MEDICATIONS: 1. Morphine 4 mg, slow IVP q.2 hours p.r.n. 2. Ondansetron 4 mg IVP q.6 hours p.r.n. 3. Normal saline 0.9% IV at 120 mL an hour. 4. Famotidine 20 mg slow IVP q.12 hours. HISTORY OF PRESENT ILLNESS/HOSPITAL COURSE: The patient is a 33-year-old female who was riding her horse when she fell off the horse and the horse fell on top of her. She was transferred via air ambulance, noted to be systolic blood pressure 60-80 en route. She was given fluids, although her heart rate remained normal at 80 the entire time. The patient reported that she had been fasting for 3 days prior to the accident. On arrival, level 1 trauma alert was called. The patient's blood pressure had improved to 110/80 with a heart rate of 80. She was mentating, normal talking. She was alert and oriented with a GCS of 15. Chest x-ray was normal. Pelvic x-ray suggested a left sacral fracture and superior and inferior rami fractures bilaterally. CT scan showed bilateral obturator ring fractures, pelvic hematoma, sacral fracture, left acetabular fracture, and a possible left ovarian injury. The patient was subsequently admitted to the trauma service. Orthopedic surgery, Dr. Irizarry was consulted for the pelvic fractures. Bladder evaluation was performed, which was ultimately normal with no signs of bladder injury. Dr. Irizarry evaluated the patient upon admission and determined that the patient's injuries were nonoperative. He thought her pelvic ring injury would be stable, but would like repeat pelvic x-rays after 48 hours, and after she was able to mobilize to check alignment of the pelvis. These pelvic x-rays were performed on September 14, which ultimately showed stable fractures. Orthopedic surgery again opted for nonoperative treatment of the patient's injuries at that time. Initially, the patient's pain was controlled. However, when she began ambulating with Physical Therapy, her pain became more out of control. Eventually, the patient's pain was controlled on all oral medications by the day of discharge with her requiring Tylenol, ibuprofen, and tramadol for pain control. The patient's hospital course was also complicated by the patient being unable to have a bowel movement for several days. The patient was on an initial scheduled bowel regimen of senna and MiraLAX. Lactulose was added after 2 days. The following day Movantik was added. On September 19, the patient began to have multiple bowel movements without issue. The patient ultimately progressed well with physical therapy and occupational therapy. Most recent physical therapy notes show that the patient has been able to walk up to 150 feet. On the morning of September 20, 2019, the patient was deemed stable for discharge back home. She is currently uninsured and therefore unable to continue physical therapy at an inpatient facility. Case Management was able to arrange for some [facility] physical therapy. First the patient will receive 2 treatment days. The patient says that she has good social support at home. She also already has a chair for her shower that she can use. The patient will require continued Lovenox 40 daily for 14 more days as an outpatient. After that course completion, she can then initiate aspirin 81 mg daily therapy for an additional 14 days. The patient will also require a close followup with Dr. Irizarry in Orthopedic surgery for continued monitoring of her pelvic and sacral fractures. DISPOSITION: Stable. DISCHARGE INSTRUCTIONS: 1. Location: Home. 2. Diet: Regular. 3. Activity: As tolerated, use pelvic brace as instructed by Orthopedic Surgery. 4. Follow up with Dr. Irizarry, orthopedic surgery in 2 weeks. 5. Continue Lovenox 40 daily for 2 weeks. 6. On October 05, begin aspirin 81 mg daily, therapy for an additional 2 weeks. Job ID: [id number]
== END 2019-09-20 18:05 | disposition home or self-care (01) | DRG 551 ==
LOC: ERS 18:06 → IMCU/EMU 19:20 → SURG A 09-13 16:03
PROVIDERS: ADMIT Family Medicine; ATTEND Family Medicine
DX: S32.10XA Unspecified fracture of sacrum, initial encounter for closed fracture (principal); S32.402A Unspecified fracture of left acetabulum, initial encounter for closed fracture; S32.810A Multiple fractures of pelvis with stable disruption of pelvic ring, initial encounter for closed fracture; S37.4 Injury of ovary; S30.0XXA Contusion of lower back and pelvis, initial encounter; W01.0XXA Fall on same level from slipping, tripping and stumbling without subsequent striking against object, initial encounter; Y93.52 Activity, horseback riding
CPT/HCPCS: 36415; 36430; 51702; 71045; 71260; 72170; 72190; 72194; 74177; 80048; 80053; 81003; 81015; 82550; 83605; 83735; 84100; 84703; 85025; 85610; 85730; 86850; 86900; 86901; 96361; 96374; 96375; 96376; 99292; G0390; J0131; J1650; J2270; J2405; J3010; J7050; P9016; Q9967; S0028